=== PATIENT | male | born 1990 | race African-American/Black ===

== ENCOUNTER 2022-11-18 10:19 | Emergency (ER) | payer SELFPAY ==
[2022-11-18] MEDS ORDERED: Sodium Chloride 0.9% 10 ML Syringe FLUSH PRN (11:02)
[2022-11-18] MEDS ORDERED: Ketorolac 30 MG/ML SDV IVPUSH ONE (11:03)
[2022-11-18] MEDS ORDERED: Metoclopramide 10 MG/2 ML SDV IVPUSH ONE (11:03)
[2022-11-18] MEDS ORDERED: diphenhydrAMINE 50 MG/ML SDV IVPUSH ONE (11:03)
== END 2022-11-18 12:41 | disposition home or self-care (01) ==
LOC: JD.ED 10:19
DX: G44.209 Tension-type headache, unspecified, not intractable (principal); M43.6 Torticollis
CPT/HCPCS: 36415; 70450; 80053; 83735; 85025; 96374; 96375; 99284; J1200; J1885; J2765; J3490; 99283